=== PATIENT | male | born 1990 | race Caucasian/White ===

== ENCOUNTER 2017-03-18 03:59 | Emergency (ER) | payer BC ==
[~2017-03-18] VITALS: Ht 177.8 cm; Wt 81.2 kg
[~2017-03-18 03:59] MED LIST: BACT800T5 PO; NAPR500 PO
[2017-03-18 04:02] VITALS: BP 135/84; PULSE 45; RESP 18; TEMP 97.9; O2SAT 98
[2017-03-18 04:18] VITALS: BP 135/84; PULSE 45; RESP 18; TEMP 97.9; O2SAT 98
--- NOTE | 2017-03-18 04:43 | PD ---
HPI Chief Complaint: Injury Time Seen by Provider: 04:40 Travel History International Travel<30 days: No Contact w/Intl Traveler<30days: No Traveled to known affect area: No History of Present Illness HPI The patient is a 26-year-old right-hand dominant male that had his finger crushed in a screen door yesterday at 4:30 PM. The screen door crushed only the distal phalanx. He denies any other injury. Pain level is a 2/10. 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 He does have a slight mallet finger fracture previously. [facility] Past Medical History Medical History: Denies Significant Hx Immunizations Current: Yes Tetanus Vaccination: < 5 Years Influenza Vaccination: No Social History Alcohol Use: Yes (socially) Tobacco Use: Yes (1/2 PPD) Substance Use: No Allergies-Medications (Allergen,Severity, Reaction): Coded Allergies: No Known Allergies (Unverified Adverse Reaction, Unknown, 03/18/17) Reported Meds & Prescriptions Reported Meds & Active Scripts Active Review of Systems Except as stated in HPI: all other systems reviewed are Neg Physical Exam Narrative GENERAL: Well-nourished, well-developed patient in minimal apparent distress with his right long finger discomfort. His vital signs are normal. SKIN: Focused skin assessment warm/dry. HEAD: Normocephalic. EYES: No scleral icterus. No injection or drainage. NECK: Supple, trachea midline. No JVD or lymphadenopathy. CARDIOVASCULAR: Regular rate and rhythm without murmurs, gallops, or rubs. RESPIRATORY: Breath sounds equal bilaterally. No accessory muscle use. GASTROINTESTINAL: Abdomen soft, non-tender, nondistended. MUSCULOSKELETAL: No cyanosis, or edema. There is a bluish discoloration of the distal phalanx and swelling but no obvious deformity present. He has good capillary refill on that finger. BACK: Nontender without obvious deformity. No CVA tenderness. Data Data Last Documented VS Vital Signs Date Time Temp Pulse Resp B/P (MAP) Pulse Ox O2 Delivery O2 Flow Rate FiO2 03/18/17 04:22 Room Air 03/18/17 04:18 97.9 45 18 135/84 (101) 98 Orders Orders Finger ([id number]) (03/18/17 04:40) MDM Medical Decision Making Medical Screen Exam Complete: Yes Emergency Medical Condition: Yes Medical Record Reviewed: Yes Interpretation(s) There is a minimally displaced tuft fracture of the third finger distal phalanx. Differential Diagnosis Tuft fracture, felon, contusion distal phalanx Narrative Course The patient has a tuft fracture of the distal phalanx of the third finger on the right. The patient will get a Stax splint for that finger. Diagnosis Primary Impression: Closed fracture of tuft of distal phalanx of finger Additional Instructions: As we discussed, follow-up with a hand surgeon if you have any problems. Keep the splint on for about 2 weeks until the swelling goes down. Elevate the finger above your heart. Med/Other Pt SpecificInfo: No Change to Meds Disposition: 01 DISCHARGE HOME Condition: Stable Keyon Lynn MD Mar 18, 2017 04:43
--- NOTE | 2017-03-18 05:19 | RADRPT ---
EXAM DATE/TIME: 03/18/2017 04:51 [facility] COMPARISON: No previous studies available for comparison. INDICATIONS : Right 3rd digit pain after patient shut finger in door yesterday MEDICAL HISTORY : None. SURGICAL HISTORY : None. ENCOUNTER: Initial ACUITY: 1 day PAIN SCORE: 3/10 LOCATION: Right distal 3rd digit FINDINGS: There is no oblique minimally displaced tuft fracture involving the third finger. A tiny ossific dens ity projecting on the plantar aspect of the PIP joint has the appearance which is likely nonacute. CONCLUSION: Minimally displaced tuft fracture of the third finger. Likely nonacute avulsion injury at the PIP gail nt Johann Chaves MD on March 18, 2017 at 5:15 Board Certified Radiologist. This report was verified electronically.
== END 2017-03-18 05:42 | disposition home or self-care (01) ==
LOC: PHED 03:59
DX: S62.632A Displaced fracture of distal phalanx of right middle finger, initial encounter for closed fracture (principal); F17.200 Nicotine dependence, unspecified, uncomplicated; W23.0XXA Caught, crushed, jammed, or pinched between moving objects, initial encounter
CPT/HCPCS: 73140; 99283